=== PATIENT | female | born 1960 | race Caucasian/White ===

== ENCOUNTER → 2016-10-03 | Outpatient (CLI) | payer BC ==
--- NOTE | 2016-10-03 14:35 | MM ---
Reason for exam: additional evaluation requested from prior study. Last mammogram was performed 1 year and 4 months ago. History: Patient is postmenopausal and is nulliparous. Physical Findings: Nurse did not find any significant physical abnormalities on exam. MG Diagnostic Mammo w CAD ANIA Bilateral CC and MLO view(s) were taken. Prior study comparison: June 04, 2015, bilateral MG 3d screening mammo w/cad. May 27, 2014, mammogram, performed at [facility]. January 17, 2013, mammogram, performed at [facility]. There are scattered fibroglandular densities. Finding: There are typically benign round calcifications in both breasts. There is no discrete abnormality. These results were verbally communicated with the patient and result sheet given to the patient on 10/03/16. ASSESSMENT: Incomplete: need additional imaging evaluation, BI-RAD 0 RECOMMENDATION: Ultrasound of the left breast. (palpable by patient)
--- NOTE | 2016-10-03 14:37 | USB ---
Reason for exam: additional evaluation requested from abnormal screening. History: Patient is postmenopausal and is nulliparous. US Breast Limited LT Left breast ultrasound demonstrates no cystic or solid lesion seen. Palpable area negative. These results were verbally communicated with the patient and result sheet given to the patient on 10/03/16. ASSESSMENT: Negative, BI-RAD 1 RECOMMENDATION: Routine screening mammogram of both breasts in 1 year. Manage patient on a clinical basis.
== END | disposition home or self-care (01) ==
LOC: RADMAMWWP 12:51
PROVIDERS: ATTEND Family Medicine
DX: R92.8 Other abnormal and inconclusive findings on diagnostic imaging of breast (principal)
CPT/HCPCS: 76642; G0204

== ENCOUNTER → 2018-01-21 | Outpatient (CLI) | payer BC ==
--- NOTE | 2018-01-21 12:08 | FL ---
EXAMINATION TYPE: FL UGI DATE OF EXAM: 01/21/2018 COMPARISON: NONE HISTORY: Gastroesophageal reflux with esophagitis TECHNIQUE: A double air contrast UGI study is performed. FINDINGS: Fluoroscopy time: 2 minutes 10 seconds. Number of images: 31 Contrast: Barium and air Esophagus dilates to normal caliber has normal contour to the gastroesophageal junction. Gastroesopha geal junction opens to normal caliber. Some subtle wall irregularity may be on the fluoroscopy images along the anterior lateral esophageal wall of the distal esophagus. This could be related to some as esophagitis. A few tertiary contractions are evident. There is incomplete stripping of the esophagea l bolus in the horizontal position. A secondary contraction was evident during this portion of the ex am. Fundus body and antrum of the stomach is visualized appears normal. Duodenum is in a normal position. Duodenal fold pattern appears normal Proximal jejunal fold pattern is unremarkable. IMPRESSIONS: 1. Presbyesophagus. 2. Subtle wall irregularity of the distal anterior lateral esophagus may be present. Direct visualiza tion could be performed for additional evaluation. Findings could be related to some esophagitis. 3. Normal stomach.
== END | disposition home or self-care (01) ==
LOC: RADFLMAIN 10:03
PROVIDERS: ATTEND Family Medicine
DX: K22.8 Other specified diseases of esophagus (principal); K21.9 Gastro-esophageal reflux disease without esophagitis
CPT/HCPCS: 74240

== ENCOUNTER → 2018-01-25 | Outpatient (CLI) | payer BC ==
--- NOTE | 2018-01-25 12:05 | CT ---
EXAMINATION TYPE: CT abdomen pelvis wo con DATE OF EXAM: 01/25/2018 HISTORY: Patient complains of epigastric pain and nausea. CT DLP: 895 mGycm. Automated Exposure Control for Dose Reduction was Utilized. TECHNIQUE: CT scan of the abdomen and pelvis is performed without oral or IV contrast. COMPARISON: NONE FINDINGS: Within the limitations of a non-contrast study, the following observations are made. LUNG BASES: There is linear scarring and/or atelectasis anteriorly in both bases near diaphragm. LIVER/GB: Liver is heterogeneously hypodense suggesting fatty infiltration. PANCREAS: No significant abnormality is seen. SPLEEN: No significant abnormality is seen. ADRENALS: No significant abnormality is seen. KIDNEYS: No renal stones or hydronephrosis is evident bilaterally. BOWEL: Slightly low-lying cecum is seen in right pelvis. Evaluation bowel suboptimal secondary to lac k of enteric contrast. There is no suspicious small or large bowel dilatation seen. Appendix show yemi e hyperdense material centrally near tip axial image 93 and 94 suspicious for appendicolith. No suspi cious dilatation or surrounding fat stranding is seen. Suspect 5 mm ingested pill superior to this ax ial image 104 within cecum. GENITAL ORGANS: Anteverted uterus is seen. There is round 8 mm density with streak artifact in the le ft pelvis new from February 10, 2016 CT of uncertain etiology axial image 106. A few small scattered pelv ic phleboliths are seen inferior to this. LYMPH NODES: No greater than 1cm abdominal or pelvic lymph nodes are appreciated. OSSEOUS STRUCTURES: There is slight grade 1 retrolisthesis of L4 on L5. There is moderate multilevel disc space narrowing and vacuum disc phenomenon as well as mild to moderate spurring L2-L3 through L4 -L5 levels. Osseous structures are demineralized. There is moderate multilevel lateral spurring in th e thoracic spine. OTHER: No significant additional abnormality is seen. IMPRESSION: No bowel obstruction is seen. No significant acute finding is identified to account for p atient's symptoms. Small appendicoliths near tip without CT evidence for acute appendicitis. Fatty in filtration of liver is felt present. 8 mm round density left pelvis with streak artifact suggesting p ossible metal new from pelvic x-ray February 10, 2016 could reflect foreign body or interval surgery such as displaced tubal ligation clip. Clinical correlation advised. Phlebolith felt much less likely.
== END | disposition home or self-care (01) ==
LOC: RADCTMAIN 11:30
PROVIDERS: ATTEND Family Medicine
DX: R10.9 Unspecified abdominal pain (principal); K21.9 Gastro-esophageal reflux disease without esophagitis; K76.0 Fatty (change of) liver, not elsewhere classified; K38.1 Appendicular concretions
CPT/HCPCS: 74176

== ENCOUNTER → 2018-02-18 | Outpatient (CLI) | payer BC ==
--- NOTE | 2018-02-19 13:48 | MM ---
Reason for exam: screening (asymptomatic). Last mammogram was performed 1 year and 5 months ago. History: Patient is postmenopausal and is nulliparous. Physical Findings: A clinical breast exam by your physician is recommended on an annual basis and results should be correlated with mammographic findings. MG 3D Screening Mammo W/Cad Bilateral CC and MLO view(s) were taken. Prior study comparison: October 03, 2016, bilateral MG diagnostic mammo w CAD ANIA. June 04, 2015, bilateral MG 3d screening mammo w/cad. There are scattered fibroglandular densities. There is no discrete abnormality. No significant changes when compared with prior studies. ASSESSMENT: Negative, BI-RAD 1 RECOMMENDATION: Routine screening mammogram of both breasts in 1 year.
== END | disposition home or self-care (01) ==
LOC: RADMAMWWP 07:57
PROVIDERS: ATTEND Family Medicine
DX: Z12.31 Encounter for screening mammogram for malignant neoplasm of breast (principal)
CPT/HCPCS: 77063; 77067

== ENCOUNTER → 2018-04-05 | Outpatient (CLI) | payer BC ==
--- NOTE | 2018-04-05 13:19 | US ---
EXAMINATION TYPE: US gallbladder DATE OF EXAM: 04/05/2018 COMPARISON: CT abdomen and pelvis January 25, 2018 CLINICAL HISTORY: R10.11 right upper quadrant pain. RUQ pain x 4 years EXAM MEASUREMENTS: Liver Length: 16.9 cm Gallbladder Wall: 0.2 cm CBD: 0.4 cm Right Kidney: 9.0 x 3.8 x 3.3 cm Pancreas: wnl Liver: Increased attenuation Gallbladder: wnl Evidence for sonographic Young's sign: No CBD: wnl Right Kidney: wnl Visualized liver is heterogeneously hyperechoic consistent with diffuse fatty infiltration as seen on CT. IMPRESSION: Diffuse fatty infiltration of liver redemonstrated. No shadowing mobile gallstones or ult rasound evidence for acute cholecystitis.
== END | disposition home or self-care (01) ==
LOC: RADUSWWP 12:02
PROVIDERS: ATTEND Surgery
DX: K76.0 Fatty (change of) liver, not elsewhere classified (principal)
CPT/HCPCS: 76705

== ENCOUNTER → 2020-05-04 | Outpatient (CLI) | payer BC ==
--- NOTE | 2020-05-04 15:38 | US ---
EXAMINATION TYPE: US thyroid st tissue head/neck DATE OF EXAM: 05/04/2020 COMPARISON: NONE CLINICAL HISTORY: E03.9 HYPOTHYROIDISM. GLAND SIZE: Right Lobe: 3.5 x 0.9 x 1.1 cm Overall Parenchyma: heterogenous Left Lobe: 3.9 x 1.2 x 1.1 cm Overall Parenchyma: heterogeneous Isthmus Thickness: 0.3 cm NODULES RIGHT: # of nodules measured on right: 0 LEFT: # of nodules measured on left: 1 1. 1.3 X 0.9 x 1.2 cm isoechoic solid nodule at the lower pole with well-defined margins; This nodu le is wider than tall and shows no intranodular vascularity. Bilateral neck scanned, no evidence of lymphadenopathy. Heterogeneous small size thyroid with left-sided lower pole 1.3 cm nodule. This is TR 3 lesion mildly suspicious. IMPRESSION: As above. No suspicious nodules to warrant sampling.
== END | disposition home or self-care (01) ==
LOC: RADUSWWP 14:51
PROVIDERS: ATTEND Family Medicine
DX: E04.1 Nontoxic single thyroid nodule (principal); E03.9 Hypothyroidism, unspecified
CPT/HCPCS: 76536

== ENCOUNTER → 2020-05-14 | Outpatient (CLI) | payer BC ==
--- NOTE | 2020-05-14 10:29 | US ---
EXAMINATION TYPE: US abdomen complete DATE OF EXAM: 05/14/2020 COMPARISON: NONE CLINICAL HISTORY: R94.5 abnormal liver function test. EXAM MEASUREMENTS: Liver Length: 14.4 cm Gallbladder Wall: 0.1 cm CBD: 0.2 cm Spleen: 11.0 cm Right Kidney: 10.8 x 4.0 x 4.2 cm Left Kidney: 10.4 x 5.0 x 4.5 cm Pancreas: wnl. Portions are obscured by bowel gas Liver: Increased attenuation, probable focal fatty sparing adjacent to portal vein Gallbladder: wnl Evidence for sonographic Young's sign: no CBD: wnl Spleen: wnl Right Kidney: No hydronephrosis or masses seen Left Kidney: No hydronephrosis or masses seen Upper IVC: wnl Abd Aorta: wnl Thick body habitus. IMPRESSION: 1. Mild fatty infiltration liver.
== END | disposition home or self-care (01) ==
LOC: RADUSWWP 09:30
PROVIDERS: ATTEND Family Medicine
DX: K76.0 Fatty (change of) liver, not elsewhere classified (principal)
CPT/HCPCS: 76700

== ENCOUNTER → 2020-05-18 | Outpatient (CLI) | payer BC ==
--- NOTE | 2020-05-18 13:44 | MM ---
Reason for exam: screening (asymptomatic). Last mammogram was performed 2 years and 3 months ago. History: Patient is postmenopausal and is nulliparous. Physical Findings: A clinical breast exam by your physician is recommended on an annual basis and results should be correlated with mammographic findings. MG 3D Screening Mammo W/Cad Bilateral CC and MLO view(s) were taken. Prior study comparison: February 18, 2018, bilateral MG 3d screening mammo w/cad. October 03, 2016, bilateral MG diagnostic mammo w CAD ANIA. There are scattered fibroglandular densities. There are benign appearing round calcifications bilaterally. There is no discrete abnormality. ASSESSMENT: Benign, BI-RAD 2 RECOMMENDATION: Routine screening mammogram of both breasts in 1 year.
== END | disposition home or self-care (01) ==
LOC: RADMAMWWP 08:22
PROVIDERS: ATTEND Family Medicine
DX: Z12.31 Encounter for screening mammogram for malignant neoplasm of breast (principal)
CPT/HCPCS: 77063; 77067

== ENCOUNTER → 2021-04-28 | Outpatient (CLI) | payer BC ==
--- NOTE | 2021-04-28 15:26 | US ---
EXAMINATION TYPE: US abdomen comp/pelvis limited DATE OF EXAM: 04/28/2021 COMPARISON: Ultrasound 05/14/2020 CLINICAL HISTORY: 61-year-old female R10.84 Gen Abd pain. Epigastric pain TECHNIQUE: Multiple sonographic images of the abdomen and bladder are obtained. FINDINGS: EXAM MEASUREMENTS: Liver Length: 19.0 cm Gallbladder Wall: 0.2 cm CBD: 0.4 cm Spleen: 9.7 cm Right Kidney: 10.5 x 4.4 x 5.5 cm Left Kidney: 10.1 x 5.5 x 4.8 cm Pancreas: wnl Liver: Enlarged, echogenic, fatty sparing near GB Gallbladder: wnl CBD: wnl Spleen: wnl Right Kidney: wnl Left Kidney: wnl Upper IVC: wnl Abd Aorta: wnl, mid portion obscured due to bowel gas. Bladder: Mild circumferential bladder wall thickening. Bilateral Jets Seen Yes Post Void Residual: 6.5 ML Normal Post Void Residual (normal less than 50ml) Yes No pelvic mass identified upon imaging of the adnexa. Vocal Performer notes:Attempted to call results to Dr's office at time of exam- no answer IMPRESSION: 1. Hepatomegaly (19.0 cm) with moderate to severe hepatic steatosis. Correlate with LFTs, lipid profi le, and patient risk factors. 2. No gallstones or biliary ductal dilatation. 3. Mild circumferential bladder wall thickening could represent chronic bladder wall hypertrophy or c ystitis. 4. Increased post void bladder volume of 7 mL falls within acceptable limits.
== END | disposition home or self-care (01) ==
LOC: RADUSWWP 09:53
PROVIDERS: ATTEND Family Medicine
DX: K76.0 Fatty (change of) liver, not elsewhere classified (principal); R16.0 Hepatomegaly, not elsewhere classified; N32.89 Other specified disorders of bladder
CPT/HCPCS: 76700; 76857

== ENCOUNTER → 2021-05-04 | Outpatient (CLI) | payer BC ==
--- NOTE | 2021-05-05 08:31 | US ---
EXAMINATION TYPE: US thyroid st tissue head/neck DATE OF EXAM: 05/04/2021 COMPARISON: 05/04/2020 CLINICAL HISTORY: 61-year-old female R22.0 Swelling Mass. TECHNIQUE: Multiple sonographic images of the thyroid gland are obtained. FINDINGS: GLAND SIZE: Right Lobe: 4.4 x 1.1 x 1.3 cm Overall Parenchyma: homogenous Left Lobe: 4.2 x 1.5 x 1.7 cm Overall Parenchyma: homogeneous Isthmus Thickness: 0.3 cm NODULES RIGHT: # of nodules measured on right: 0 LEFT: # of nodules measured on left: 1 1. 1.3 X 1.0 x 0.8 cm, lower mid, solid or almost completely solid, hyperechoic nodule, which is wi nadine than tall, with smooth margins, without echogenic foci. Prior size: 1.3 x 0.9 x 1.2 cm ISTHMUS: # of nodules measured in the isthmus: 0 Bilateral neck scanned, no evidence of lymphadenopathy. IMPRESSION: Solitary TR3 nodule in the left lower lobe is stable at 1.3 cm. Additional follow-up as clinically in dicated.
== END | disposition home or self-care (01) ==
LOC: RADUSWWP 16:25
PROVIDERS: ATTEND Family Medicine
DX: E04.2 Nontoxic multinodular goiter (principal)
CPT/HCPCS: 76536

== ENCOUNTER → 2021-05-09 | Outpatient (CLI) | payer BC ==
--- NOTE | 2021-05-09 09:47 | NM ---
EXAMINATION TYPE: NM hepatobiliary w EF DATE OF EXAM: 05/09/2021 COMPARISON: Ultrasound 04/28/2021 HISTORY: Generalized abdominal pain TECHNIQUE: After the intravenous administration of 4.9 mCi Tc 99m Mebrofenin hepatobiliary scintigrap hy is performed. Immediate images post injection. FINDINGS: There is satisfactory initial accumulation of tracer by the liver. The gallbladder is visualized wit hin 8 minutes. The small bowel activity is noted within 4 minutes. At one hour 8 ounces of oral ens ure plus is given to mimic CCK and gallbladder ejection fraction is calculated at 92 %, above the upp er limit of the normal range. Therefore there is no scintigraphic evidence of cystic or common bile duct obstruction to suggest acute cholecystitis. IMPRESSION: No cystic duct obstruction. Consider hyperdynamic gallbladder.
== END | disposition home or self-care (01) ==
LOC: RADNMMAIN 06:54
PROVIDERS: ATTEND Family Medicine
DX: R10.84 Generalized abdominal pain (principal)
CPT/HCPCS: 78226; A9537

== ENCOUNTER → 2021-06-13 | Outpatient (CLI) | payer BC ==
--- NOTE | 2021-06-15 09:55 | MM ---
Reason for exam: screening (asymptomatic). Last mammogram was performed 1 year and 1 month ago. History: Patient is postmenopausal and is nulliparous. Physical Findings: A clinical breast exam by your physician is recommended on an annual basis and results should be correlated with mammographic findings. MG 3D Screening Mammo W/Cad Bilateral CC and MLO view(s) were taken. Prior study comparison: May 18, 2020, bilateral MG 3d screening mammo w/cad. February 18, 2018, bilateral MG 3d screening mammo w/cad. There are scattered fibroglandular densities. Benign appearing bilateral calcifications. No significant changes when compared with prior studies. ASSESSMENT: Benign, BI-RAD 2 RECOMMENDATION: Routine screening mammogram of both breasts in 1 year.
== END | disposition home or self-care (01) ==
LOC: RADMAMWWP 11:16
PROVIDERS: ATTEND Family Medicine
DX: Z12.31 Encounter for screening mammogram for malignant neoplasm of breast (principal); Z78.0 Asymptomatic menopausal state
CPT/HCPCS: 77063; 77067

== ENCOUNTER 2021-09-27 09:28 | Day surgery (SDC) | payer BC ==
[2021-09-26 10:09] VITALS: BMI 28.3
[~2021-09-27 09:28] MED LIST: LACTATED RINGERS 1,000 ML IV SCH
[2021-09-27 09:47] VITALS: RESP 16; TEMP 97.7
[2021-09-27] MEDS ORDERED: LIDOCAINE 1% (10MG/ML) FOR IV START INTRADERMA ONE (09:58)
[2021-09-27] MEDS ORDERED: ONDANSETRON 4 MG/2 ML VIAL ONE (10:03)
[2021-09-27] MEDS ORDERED: PROPOFOL 10 MG/ML 20 ML VIAL IV ONE (10:11)
[2021-09-27] MEDS ORDERED: LIDOCAINE 1% INJ 10MG/ML (20 ML MDV) ONE (10:11)
--- NOTE | 2021-09-27 10:18 | P.GSHP ---
History of Present Illness H&P Date: 09/27/21 Chief Complaint: Abdominal pain, change in bowel habits 61-year-old female last seen in the office in July. Patient describes chronic abdominal pain. Pain is usually diffuse and intermittent in nature. Rates it as a 5 out of 10. She has chronic reflux and nausea. No vomiting. Patient has had loose stools chronically as well. Recent ultrasound showed a normal gallbladder and a HIDA scan showed a 92% ejection fraction. She was sent for tertiary care evaluation with GI. GI is recommending EGD with small bowel biopsy and colonoscopy with random colonic biopsies. Denies rectal bleeding. Past Medical History Past Medical History: Hearing Disorder / Deafness, Hypertension, Thyroid Disorder Additional Past Medical History / Comment(s): COLITIS History of Any Multi-Drug Resistant Organisms: None Reported Past Surgical History: Ear Surgery Additional Past Surgical History / Comment(s): THROAT POLYPS REMOVED Past Anesthesia/Blood Transfusion Reactions: Postoperative Nausea & Vomiting (PONV) Past Psychological History: No Psychological Hx Reported Smoking Status: Never smoker Past Alcohol Use History: None Reported Past Drug Use History: None Reported Medications and Allergies Home Medications Medication Instructions Recorded Confirmed Type Levothyroxine Sodium [Synthroid] 100 mcg PO DAILY 11/18/14 09/27/21 History lisinopriL [Prinivil] 10 mg PO DAILY 11/18/14 09/27/21 History Allergies Allergy/AdvReac Type Severity Reaction Status Date / Time Penicillins AdvReac Rash/Hives Verified 09/27/21 10:02 Surgical - Exam Vital Signs Temp Pulse Resp BP Pulse Ox 97.7 F 75 16 149/84 97 09/27/21 09:46 09/27/21 09:46 09/27/21 09:46 09/27/21 09:46 09/27/21 09:46 Physical exam: General: Well-developed, well-nourished HEENT: Normocephalic, sclerae nonicteric Abdomen: Nontender, nondistended Extremities: No edema Neuro: Alert and oriented Assessment and Plan (1) Change in bowel habits Narrative/Plan: Will proceed with upper and lower endoscopy Current Visit: Yes Status: Acute Code(s): R19.4 - CHANGE IN BOWEL HABIT SNOMED Code(s): 886467577
--- NOTE | 2021-09-27 10:41 | P.PCN ---
Date of Procedure: 09/27/21 Procedure(s) Performed: PREOPERATIVE DIAGNOSIS: Change in bowel habits, abdominal pain POSTOPERATIVE DIAGNOSIS: Gastritis, mild distal esophagitis, normal colon PROCEDURE: 1. EGD with biopsy 2. Colonoscopy with random biopsy ANESTHESIA: MAC SURGEON: Rodney Heck M.D. SPECIMENS: Antrum, duodenum, distal esophagus, ileum, random: ENDOSCOPIC PROCEDURE: The patient was on the endoscopy table in the left decubitus position. The Olympus gastroscope was inserted into the oropharynx and passed under direct visualization to the region of the third portion of the duodenum. From that point the scope was slowly withdrawn inspecting all surfaces carefully. There were no neoplastic inflammatory or polypoid lesions throughout the duodenum. Biopsies of the duodenum took place. The pylorus was widely patent. The stomach was carefully inspected. There was minimal gastritis present. A biopsy of the antrum took place to rule out H. pylori. Retroflexion revealed a normal hiatus. The esophagus was then carefully examined. There was mild distal esophagitis with a single small linear erosion present measuring less than 1 cm. A biopsy of the distal esophagitis took place. The patient was kept on the endoscopy table in the left decubitus position. The Olympus colonoscope was inserted into the anus and passed under direct visualization to the base of the cecum. The appendiceal orifice was visualized. The ileum was inspected and appeared normal. A biopsy of the ileum took place. From that point the scope was slowly withdrawn inspecting all surfaces carefully. There were no neoplastic inflammatory or polypoid lesions throughout the cecum, ascending, transverse, descending, sigmoid and rectum. There was no visible diverticulosis noted. Digital rectal examination was normal. The patient was taken to the recovery room in stable condition per anesthesia guidelines. Random colonic biopsies were taken as well. RECOMMENDATIONS: Await biopsy results. Follow-up with [facility].
[2021-09-27 11:04] VITALS: BP 128/78; PULSE 84
== END 2021-09-27 11:17 | disposition home or self-care (01) ==
LOC: ORWHC2ENDO 09:28
PROVIDERS: ATTEND Surgery
DX: K29.80 Duodenitis without bleeding (principal); K29.50 Unspecified chronic gastritis without bleeding; K21.00 Gastro-esophageal reflux disease with esophagitis, without bleeding; K57.30 Diverticulosis of large intestine without perforation or abscess without bleeding; I10 Essential (primary) hypertension; E07.9 Disorder of thyroid, unspecified; Z97.2 Presence of dental prosthetic device (complete) (partial); Z79.890 Hormone replacement therapy; Z79.899 Other long term (current) drug therapy; Z98.890 Other specified postprocedural states; Z88.0 Allergy status to penicillin
CPT/HCPCS: 88305; 45380; 43239; J2405; J2001; J2704

== ENCOUNTER → 2022-06-14 | Outpatient (CLI) | payer BC ==
--- NOTE | 2022-06-14 12:15 | US ---
EXAMINATION TYPE: US thyroid st tissue head/neck DATE OF EXAM: 06/14/2022 COMPARISON: NONE CLINICAL HISTORY: E04.1 SINGLE THYROID NODULE. Thyroid nodule GLAND SIZE: Right Lobe: 4.3 x 1.2 x 1.6 cm Overall Parenchyma: homogenous Left Lobe: 3.9 x 1.1 x 1.4 cm Overall Parenchyma: homogeneous Isthmus Thickness: .2 cm NODULES RIGHT: # of nodules measured on right: 0 LEFT: # of nodules measured on left: 1 1. 1.5 X 1.0 x 1.4 cm, lower Prior size: 1.3 x 1.0 x .8 cm TIRADS Score: 3 TIRADS Category 3: Mildly Suspicious Composition: Solid or almost completely solid (2 points). Echogenicity: Hyperechoic or isoechoic (1 point). Shape: Wider than tall (0 points). Margin: Smooth (0 points). Echogenic foci: None or large comet-tail artifacts (0 points) Recommendation: If >2.5cm: FNA; If >1.5cm: Follow up at 1,3,5 years ISTHMUS: # of nodules measured in the isthmus: 0.2 Bilateral neck scanned, no evidence of lymphadenopathy. IMPRESSION: Left thyroid nodule that meet criteria for follow-up. 2017 ACR TI-RADS LEVEL: TR-RADS 3 - Mildly Suspicious: Follow if > 1.5 cm, FNA if > 2.5 cm *Highest TI-RADS level nodule reported
[2022-06-14 16:00] LABS: T4, Free (Free Thyroxine) 1.61 ng/dL (0.800-1.800)
== END | disposition home or self-care (01) ==
LOC: RADUSWWP 10:48
PROVIDERS: ATTEND Internal Medicine Endocrinology, Diabetes & Metabolism
DX: E04.1 Nontoxic single thyroid nodule (principal)
CPT/HCPCS: 76536; 84439; 84443

== ENCOUNTER → 2022-06-14 | Outpatient (CLI) | payer BC ==
--- NOTE | 2022-06-15 19:03 | MM ---
Reason for Exam: Screening (asymptomatic). Last screening mammogram was performed 12 month(s) ago. Patient History: Menarche at age 16. Patient has no children. Postmenopausal. Risk Values: Cat 5 year model risk: 1.5%. NCI Lifetime model risk: 7.4%. Prior Study Comparison: 02/18/2018 Bilateral Screening Mammogram, [facility]. 05/18/2020 Bilateral Screening Mammogram, [facility]. 06/13/2021 Bilateral Screening Mammogram, [facility]. Tissue Density: There are scattered fibroglandular densities. Findings: Analyzed By CAD. There is no suspicious group of microcalcifications or new suspicious mass in either breast. Overall Assessment: Negative, BI-RAD 1 Management: Screening Mammogram of both breasts in 1 year. 1. Patient should continue monthly self breast exams. 2. A clinical breast exam by your physician is recommended on an annual basis. 3. This exam should not preclude additional follow-up of suspicious palpable abnormalities. Electronically signed and approved by: Vamshi Connell M.D. Radiologist
== END | disposition home or self-care (01) ==
LOC: RADMAMWWP 10:46
PROVIDERS: ATTEND Family Medicine
DX: Z12.31 Encounter for screening mammogram for malignant neoplasm of breast (principal); Z78.0 Asymptomatic menopausal state
CPT/HCPCS: 77063; 77067

== ENCOUNTER → 2022-12-07 | Outpatient (CLI) | payer BC ==
--- NOTE | 2022-12-07 16:26 | US ---
EXAMINATION TYPE: US thyroid st tissue head/neck DATE OF EXAM: 12/07/2022 COMPARISON: 06/14/2020 CLINICAL INDICATION: Female, 62 years old with history of E04.1 SINGLE THYROID NODULE; follow up thyr oid nodule GLAND SIZE: Right Lobe: 4.4x1.1x1.4 cm Overall Parenchyma: homogenous Left Lobe: 4.6x2.8x1.2 cm Overall Parenchyma: homogeneous Isthmus Thickness: 0.3 cm NODULES RIGHT: # of nodules measured on right: 0 LEFT: # of nodules measured on left: 1 1. 1.5 X 1.0 x 1.3 cm, lower mid, solid or almost completely solid, isoechoic TR 3 nodule, which is wider than tall, with smooth margins, without echogenic foci. Prior size: 1.5 x 0.9 x 1.4 cm ISTHMUS: # of nodules measured in the isthmus: 0 Bilateral neck scanned, lymphadenopathy noted in left submandibular region where patient felt palpabl e lymph node. This measures 1.0x0.5x0.5cm IMPRESSION: 1. A borderline sized 5 mm short axis left submandibular space lymph node at the patient's palpable s ite, likely reactive/post inflammatory. This can be followed clinically. If any enlargement, the area can be rescanned. 2. A 1.5 cm solid TR 3 nodule in the left lobe remains stable.
[2022-12-08 09:50] LABS: T4, Free (Free Thyroxine) 1.84 ng/dL (0.800-1.800)
== END | disposition home or self-care (01) ==
LOC: RADUSWWP 12:55
PROVIDERS: ATTEND Internal Medicine Endocrinology, Diabetes & Metabolism
DX: E04.1 Nontoxic single thyroid nodule (principal)
CPT/HCPCS: 76536; 84439; 84443

== ENCOUNTER → 2023-02-05 | Outpatient (CLI) | payer BC ==
[2023-02-05 16:14] LABS: T4, Free (Free Thyroxine) 1.55 ng/dL (0.80-1.80)
== END | disposition home or self-care (01) ==
LOC: LABWHC1 10:58
PROVIDERS: ATTEND Internal Medicine Endocrinology, Diabetes & Metabolism
DX: E04.1 Nontoxic single thyroid nodule (principal)
CPT/HCPCS: 36415; 84439; 84443

== ENCOUNTER → 2023-06-15 | Outpatient (CLI) | payer BC ==
--- NOTE | 2023-06-18 08:39 | MM ---
Reason for Exam: Screening (asymptomatic). Last screening mammogram was performed 12 month(s) ago. Patient History: Menarche at age 16. Patient has no children. Postmenopausal. Risk Values: Cat 5 year model risk: 1.5%. NCI Lifetime model risk: 7.2%. Prior Study Comparison: 05/18/2020 Bilateral Screening Mammogram, [facility]. 06/13/2021 Bilateral Screening Mammogram, [facility]. 06/14/2022 Bilateral MG 3D screening mammo w/cad, [facility]. Tissue Density: There are scattered fibroglandular densities. Findings: Analyzed By CAD. There is no suspicious group of microcalcifications or new suspicious mass in either breast. Overall Assessment: Negative, BI-RAD 1 Management: Screening Mammogram of both breasts in 1 year. . Patient should continue monthly self-breast exams. A clinical breast exam by your physician is recommended on an annual basis. This exam should not preclude additional follow-up of suspicious palpable abnormalities. Note on Cat scores and lifetime risk: 1. A Cat score greater than 3% is considered moderate risk. If this is the case, consider specialist referral to assess eligibility for a risk reducing agent. 2. If overall lifetime risk for the development of breast cancer is 20% or higher, the patient may qualify for future screening with alternating mammogram and breast MRI. Electronically signed and approved by: Kristopher Narayanan M.D. Radiologis
== END | disposition home or self-care (01) ==
LOC: RADMAMWWP 07:31
PROVIDERS: ATTEND Family Medicine
DX: Z12.31 Encounter for screening mammogram for malignant neoplasm of breast (principal); Z78.0 Asymptomatic menopausal state
CPT/HCPCS: 77063; 77067

== ENCOUNTER → 2023-08-15 | Outpatient (CLI) | payer BC | END | disposition home or self-care (01) | LOC: LABWHC1 09:41 | PROVIDERS: ATTEND Internal Medicine Endocrinology, Diabetes & Metabolism | DX: E03.8 Other specified hypothyroidism (principal) | CPT/HCPCS: 36415; 84443 ==

== ENCOUNTER → 2023-12-18 | Outpatient (CLI) | payer BC ==
--- NOTE | 2023-12-18 15:11 | XR ---
EXAMINATION TYPE: XR lumbar spine 2 or 3V DATE OF EXAM: 12/18/2023 COMPARISON: 02/10/2016 HISTORY: Left-sided sciatica TECHNIQUE: 3 view lumbar spine FINDINGS: Mild scoliosis is present. Degenerative disc change through the lumbar spine which is progr essive from comparison. There is grade 1 retrolisthesis of L4 posterior on L5. Loss of disc height is present throughout the lumbar spine. Some vacuum disc phenomenon is noted L2-3 L3-4. IMPRESSION: 1. Degenerative disc changes, progressive. Consider MRI for additional evaluation. 2. Mild scoliosis lumbar spine. 3. Retrolisthesis of L4 posterior on L5.
== END | disposition home or self-care (01) ==
LOC: RADXRMAIN 10:21
PROVIDERS: ATTEND Family Medicine
DX: M43.16 Spondylolisthesis, lumbar region (principal); M51.17 Intervertebral disc disorders with radiculopathy, lumbosacral region; M41.86 Other forms of scoliosis, lumbar region
CPT/HCPCS: 72100

== ENCOUNTER → 2023-12-18 | Outpatient (CLI) | payer BC ==
--- NOTE | 2023-12-18 11:15 | US ---
EXAMINATION TYPE: US thyroid st tissue head/neck DATE OF EXAM: 12/18/2023 COMPARISON: US 2022 CLINICAL INDICATION: Female, 63 years old with history of E04.1 NONTOXIC SINGLE THYROID NODULE; GLAND SIZE: Right Lobe: 4.0 x 1.0 x 1.6 cm Overall Parenchyma: heterogeneous Left Lobe: 4.0 x 1.3 x 1.6 cm Overall Parenchyma: heterogeneous Isthmus Thickness: 0.2 cm NODULES RIGHT: # of nodules measured on right: 0 LEFT: # of nodules measured on left: 1 1. 1.4 X 1.1 x 1.5 cm, lower mid, Prior size: 1.5 x 1.0 x 1.0 cm TIRADS Score: 3 TIRADS Category 3: Composition: Solid or almost completely solid (2 points). Echogenicity: Hyperechoic or isoechoic (1 point). Shape: Wider than tall (0 points). Margin: Smooth (0 points). Echogenic foci: None or large comet-tail artifacts (0 points) Recommendation: If >2.5cm: FNA; If >1.5cm: Follow up at 1,3,5 years ISTHMUS: # of nodules measured in the isthmus: 0 Bilateral neck scanned, no evidence of lymphadenopathy. IMPRESSION: Left thyroid nodule that meets criteria for follow-up.
== END | disposition home or self-care (01) ==
LOC: RADUSWWP 10:11
PROVIDERS: ATTEND Internal Medicine Endocrinology, Diabetes & Metabolism
DX: E04.1 Nontoxic single thyroid nodule (principal)
CPT/HCPCS: 76536

== ENCOUNTER → 2023-12-18 | Outpatient (CLI) | payer BC ==
[2023-12-18 16:06] LABS: T4, Free (Free Thyroxine) 1.51 ng/dL (0.80-1.80)
== END | disposition home or self-care (01) ==
LOC: LABWHC1 10:17
PROVIDERS: ATTEND Internal Medicine Endocrinology, Diabetes & Metabolism
DX: E04.1 Nontoxic single thyroid nodule (principal)
CPT/HCPCS: 36415; 84439; 84443

== ENCOUNTER → 2024-06-16 | Outpatient (CLI) | payer BC ==
--- NOTE | 2024-06-17 08:51 | MM ---
Reason for Exam: Screening (asymptomatic). Last screening mammogram was performed 12 month(s) ago. Patient History: Menarche at age 16. Patient has no children. Postmenopausal. Risk Values: Cat 5 year model risk: 1.5%. NCI Lifetime model risk: 7.0%. Prior Study Comparison: 06/13/2021 Bilateral Screening Mammogram, [facility]. 06/14/2022 Bilateral MG 3D screening mammo w/cad, [facility]. 06/15/2023 Bilateral MG 3D screening mammo w/cad, [facility]. Tissue Density: The breasts are almost entirely fatty. Findings: Analyzed By CAD. Right breast: There is no suspicious group of microcalcifications or new suspicious mass. Left breast: There is no suspicious group of microcalcifications or new suspicious mass. Overall Assessment: Negative, BI-RAD 1 Management: Screening Mammogram of both breasts in [address] [facility] will attempt to contact patient to return for supplemental views and ultrasound if indicated. Patient should continue monthly self-breast exams. A clinical breast exam by your physician is recommended on an annual basis. This exam should not preclude additional follow-up of suspicious palpable abnormalities. Note on Cat scores and lifetime risk: 1. A Cat score greater than 3% is considered moderate risk. If this is the case, consider specialist referral to assess eligibility for a risk reducing agent. 2. If overall lifetime risk for the development of breast cancer is 20% or higher, the patient may qualify for future screening with alternating mammogram and breast MRI. [facility], , 06/17/2024 8:48 AM. Electronically signed and approved by: Ahmet Cardenas DO
== END | disposition home or self-care (01) ==
LOC: RADMAMWWP 08:01
PROVIDERS: ATTEND Family Medicine
DX: Z12.31 Encounter for screening mammogram for malignant neoplasm of breast (principal); Z78.0 Asymptomatic menopausal state; Z80.3 Family history of malignant neoplasm of breast; R92.313 Mammographic fatty tissue density, bilateral breasts
CPT/HCPCS: 77063; 77067

== ENCOUNTER → 2024-12-18 | Outpatient (CLI) | payer BC ==
--- NOTE | 2024-12-18 10:10 | US ---
EXAMINATION TYPE: US thyroid st tissue head/neck DATE OF EXAM: 12/18/2024 COMPARISON: Prior thyroid ultrasound December 18, 2023 CLINICAL INDICATION: Female, 64 years old with history of E04.1 NONTOXIC SINGLE THYROID NODULE; Thyro id nodules. TECHNIQUE: Grayscale and color Doppler imaging of the thyroid gland. FINDINGS: GLAND SIZE: Right Lobe: 3.9 x 1.2 x 1.3 cm Overall Parenchyma: homogeneous Left Lobe: 4.4 1.1 x 1.4 cm Overall Parenchyma: homogeneous Isthmus Thickness: .3 cm NODULES RIGHT: # of nodules measured on right: 0 LEFT: # of nodules measured on left: 1 1. 1.7 X 1.2 x 1.4 cm, lower lateral, solid or almost completely solid, hyperechoic nodule, which i s wider than tall, with smooth margins, without echogenic foci. TR3 Prior size: 1.4 x 1.1 x 1.5 cm ISTHMUS: # of nodules measured in the isthmus: 0 Persistent homogeneous normal-sized thyroid with stable left-sided nodule. Two hypoechoic areas seen right lateral neck measuring .7 x .7 cm and .9 x .7 cm. Findings likely ref lect prominent but benign lymph nodes. IMPRESSION: As above. Highest TI-RADS level nodule reported: 2017 ACR TI-RADS LEVEL: TI-RADS 3 - Mildly Suspicious: Follow if > 1.5 cm, FNA if > 2.5 cm TI-RADS assessment score and recommendation for follow-up based on appropriate scoring and treatment protocols. TR1 Benign No FNA TR2 Not suspicious No FNA TR3: If nodule size is ? 2.5 cm, FNA is recommended. If nodule size is ? 1.5 cm, follow-up imaging at 1, 3, and 5 years is recommended. TR4: If nodule size is ? 1.5 cm, FNA is recommended. If nodule size is ? 1.0 cm, follow-up imaging at 1, 2, 3, and 5 years is recommended. TR5: If nodule size is ? 1.0 cm, FNA is recommended. If nodule size is ? 0.5 cm, annual follow-up for up to 5 years is recommended. TR 1 thyroid nodules have a 0.3 % risk of malignancy. TR 2 thyroid nodules have a 1.5 % risk of malignancy. TR 3 thyroid nodules have a 4.8 % risk of malignancy. TR 4 thyroid nodules have a 9.1 % risk of malignancy. TR 5 thyroid nodules have a 35 % risk of malignancy. [email or web address] [facility], , 12/18/2024 10:08 AM
== END | disposition home or self-care (01) ==
LOC: RADUSWWP 09:24
PROVIDERS: ATTEND Family Medicine
DX: E04.1 Nontoxic single thyroid nodule (principal)
CPT/HCPCS: 76536